=== PATIENT | male | born 1945 | race Caucasian/White ===

== ENCOUNTER → 2017-11-30 | Outpatient (CLI) | payer MEDICARE ==
[~2017-11-30] MED LIST: ACET-1966 PO; FERR-53 PO; HYDR-389 PO; MULT-28; OXYC-373 PO
[2017-11-30 15:54] LABS: PLATELET COUNT, AUTOMATED 306 K/uL (150-450)
[2017-11-30 16:07] LABS: INR 1.03
== END ==
LOC: LAB 15:20
PROVIDERS: ATTEND Internal Medicine Nephrology
DX: N17.9 Acute kidney failure, unspecified (principal); E43 Unspecified severe protein-calorie malnutrition; Q60.0 Renal agenesis, unilateral; E87.5 Hyperkalemia; E87.1 Hypo-osmolality and hyponatremia; Z78.9 Other specified health status; N12 Tubulo-interstitial nephritis, not specified as acute or chronic
CPT/HCPCS: 36415; 82310; 82374; 82435; 82565; 82947; 84100; 84132; 84295; 84520; 85025; 85610; 86706; 87340

== ENCOUNTER → 2018-06-22 | Outpatient (CLI) | payer MEDICARE ==
[2018-06-22 11:48] LABS: PLATELET COUNT, AUTOMATED 367 K/uL (150-450)
== END ==
LOC: LAB 11:23
PROVIDERS: ATTEND Internal Medicine Nephrology
DX: N17.9 Acute kidney failure, unspecified (principal); N20.1 Calculus of ureter; N18.4 Chronic kidney disease, stage 4 (severe); N13.5 Crossing vessel and stricture of ureter without hydronephrosis; N28.9 Disorder of kidney and ureter, unspecified; E87.2 Acidosis
CPT/HCPCS: 36415; 82040; 82310; 82374; 82435; 82565; 82947; 83970; 84100; 84132; 84295; 84520; 85025

== ENCOUNTER → 2018-07-23 | Outpatient (CLI) | payer MEDICARE ==
[~2018-07-23] MED LIST changes: +CALC-488 PO; +FLU180SY11 IM; +PNEU0.5D3 IM; +SODI650T7 PO; +TRAZ50TA34 PO
== END ==
LOC: LAB 14:50
PROVIDERS: ATTEND Internal Medicine Nephrology
DX: N18.4 Chronic kidney disease, stage 4 (severe) (principal); E87.1 Hypo-osmolality and hyponatremia; D63.1 Anemia in chronic kidney disease
CPT/HCPCS: 36415; 82040; 82310; 82374; 82435; 82565; 82947; 84100; 84132; 84295; 84520; 85027

== ENCOUNTER → 2018-07-24 | Outpatient (CLI) | payer MEDICARE ==
[2018-07-24 10:48] LABS: PLATELET COUNT, AUTOMATED 273 K/uL (150-450)
== END ==
LOC: LAB 10:22
PROVIDERS: ATTEND Internal Medicine
DX: D64.9 Anemia, unspecified (principal); E21.3 Hyperparathyroidism, unspecified; N18.9 Chronic kidney disease, unspecified; N20.0 Calculus of kidney; R53.83 Other fatigue
CPT/HCPCS: 84443; 85025; G0103; 82040; 82247; 82310; 82374; 82435; 82465; 82565; 82947; 83718; 84075; 84132; 84153; 84155; 84295; 84450; 84460; 84478; 84520

== ENCOUNTER → 2018-08-23 | Outpatient (CLI) | payer MEDICARE, OTHER | LOC: LAB 10:28 | PROVIDERS: ATTEND Internal Medicine Nephrology | DX: N18.4 Chronic kidney disease, stage 4 (severe) (principal); E87.1 Hypo-osmolality and hyponatremia; D63.1 Anemia in chronic kidney disease | CPT/HCPCS: 36415; 82040; 82310; 82374; 82435; 82565; 82947; 84100; 84132; 84295; 84520; 85027 ==

== ENCOUNTER → 2018-10-16 | Outpatient (CLI) | payer MEDICARE, OTHER ==
[2018-10-16 09:44] LABS: PLATELET COUNT, AUTOMATED 265 K/uL (150-450)
== END ==
LOC: LAB 09:00
PROVIDERS: ATTEND Internal Medicine Nephrology
DX: N25.81 Secondary hyperparathyroidism of renal origin (principal); E87.1 Hypo-osmolality and hyponatremia; N18.4 Chronic kidney disease, stage 4 (severe); N18.5 Chronic kidney disease, stage 5; D63.1 Anemia in chronic kidney disease
CPT/HCPCS: 36415; 82040; 82310; 82374; 82435; 82565; 82728; 82947; 83540; 83550; 83970; 84100; 84132; 84295; 84520; 85025

== ENCOUNTER → 2019-01-16 | Outpatient (CLI) | payer MEDICARE, OTHER ==
[2019-01-16 10:53] LABS: PLATELET COUNT, AUTOMATED 242 K/uL (150-450)
== END ==
LOC: LAB 10:27
PROVIDERS: ATTEND Internal Medicine Nephrology
DX: D63.1 Anemia in chronic kidney disease (principal); N18.5 Chronic kidney disease, stage 5; E87.2 Acidosis; N25.81 Secondary hyperparathyroidism of renal origin; Z87.442 Personal history of urinary calculi; Z90.5 Acquired absence of kidney
CPT/HCPCS: 36415; 82040; 82310; 82374; 82435; 82565; 82947; 84100; 84132; 84295; 84520; 85025